=== PATIENT | male | born 1960 | race Caucasian/White ===

== ENCOUNTER 2022-01-11 15:41 | Inpatient (IN) | payer BC, OTHER ==
[2022-01-11 16:30] LABS: #Basophils 0.1 10x3/uL (0.0-0.2); #Eosinphils 0.5 10x3/uL (0.0-0.5); #Monocytes 1.1 10x3/uL (0.0-1.1); #Neutrophils 7.3 10x3/uL (1.5-8.4); %Basophils 0.4 % (0.0-2.0); %Eosinophils 3.8 % (0.0-6.0); %Lymphocytes 25.8 % (18.0-47.0); %Monocytes 9.1 % (0.0-10.0); %Neutrophils 60.5 % (40.0-75.0); Hemoglobin 15.6 g/dL (13.5-17.5); Mean Corpuscular Volume 82.3 fl (81.2-95.1); Mean Platelet Volume 10.7 fl (7.4-10.4); Platelet Count 279 10x3/uL (150-450); RBC Distribution Width 14.1 % (11.5-14.5); Red Blood Cell (RBC) Count 5.58 10x6/uL (4.32-5.72); White Blood Cell (WBC) Count 12.1 10x3/uL (3.5-10.5)
[2022-01-11 16:39] LABS: ALT (SGPT) 76 U/L (8-55); AST (SGOT) 63 U/L (5-34); Albumin 4.3 g/dL (3.5-5.0); Alkaline Phosphatase 54 U/L (40-110); Anion Gap 17 mmol/L (10-20); BUN (Urea Nitrogen) 17 mg/dL (8.4-25.7); Calc. Creatinine Clearance 0 mL/min (70-130); Calcium 9.8 mg/dL (7.8-10.44); Carbon Dioxide 24 mmol/L (22-29); Chloride 103 mmol/L (98-107); Estimated GFR 59; Globulin 3.1 g/dL (2.4-3.5); Glucose 216 mg/dL (70-105); Potassium 4.8 mmol/L (3.5-5.1); Protein, Total 7.4 g/dL (6.0-8.3); Sodium 139 mmol/L (136-145)
[2022-01-11] MEDS ORDERED: Adenosine 6 MG/2 ML VIAL ONE (17:55)
[2022-01-11] MEDS ORDERED: Amiodarone 150 MG/3 ML VIAL ONE (19:03)
[2022-01-11] MEDS ORDERED: Amiodarone In Dextrose 200 ML ONE (19:04)
[2022-01-11] MEDS ORDERED: Diltiazem 125 MG/25 ML ONE (19:44)
[2022-01-11 19:54] LABS: INR-International Normal Ratio 1.1; PTT 26.5 sec (22.0-33.0); Prothrombin Time 11.6 sec (9.5-12.1)
[2022-01-12 00:03] LABS: SARS-CoV-2 NAA Rapid Test DETECTED (NotDetected)
[2022-01-12] MEDS ORDERED: Diltiazem 125 MG in Sodium Chloride 0.9% 100 ML IVPB SCH (00:30)
[2022-01-12] MEDS ORDERED: Enoxaparin Sodium 120 MG/0.8 ML SYRINGE SC SCH ×2 (01:00→09:00)
[2022-01-12 01:14] VITALS: BMI 42.6
[2022-01-12] MEDS: Digoxin 0.5 MG/2 ML AMP SLOW IVP SCH ×3 (01:33→05:38)
[2022-01-12 01:36] LABS: Troponin I 0.017 ng/mL (< 0.028)
[2022-01-12 02:25] LABS: #Eosinphils 0.5 10x3/uL (0.0-0.5); #Monocytes 0.9 10x3/uL (0.0-1.1); #Neutrophils 6.7 10x3/uL (1.5-8.4); %Basophils 0.3 % (0.0-2.0); %Eosinophils 4.4 % (0.0-6.0); %Lymphocytes 28.3 % (18.0-47.0); %Monocytes 8.2 % (0.0-10.0); %Neutrophils 58.6 % (40.0-75.0); Mean Corpuscular HGB CONC 34.3 g/dL (32.0-36.0); Mean Corpuscular Hemoglobin 28.1 pg (27.0-33.0); Mean Corpuscular Volume 81.8 fl (81.2-95.1); Mean Platelet Volume 10.8 fl (7.4-10.4); Platelet Count 217 10x3/uL (150-450); RBC Distribution Width 14.3 % (11.5-14.5); Red Blood Cell (RBC) Count 4.99 10x6/uL (4.32-5.72); White Blood Cell (WBC) Count 11.5 10x3/uL (3.5-10.5)
[2022-01-12 03:08] LABS: Anion Gap 16 mmol/L (10-20); BUN (Urea Nitrogen) 18 mg/dL (8.4-25.7); Calc. Creatinine Clearance 142 mL/min (70-130); Calcium 9.2 mg/dL (7.8-10.44); Carbon Dioxide 24 mmol/L (22-29); Chloride 103 mmol/L (98-107); Cholesterol 169 mg/dl (< 200 Desired); Estimated GFR 75; Glucose 270 mg/dL (70-105); HDL Cholesterol 28 mg/dL (>60 Neg Risk); LDL Cholesterol, Calculated 70 mg/dL; Magnesium 1.4 mg/dL (1.6-2.6); Potassium 4.1 mmol/L (3.5-5.1); Sodium 139 mmol/L (136-145); Triglycerides 355 mg/dL (Less than 150)
[2022-01-12 04:12] LABS: Troponin I 0.019 ng/mL (< 0.028)
[2022-01-12] MEDS ORDERED: Magnesium 2 GM/50 ML(in water) 2 GM in Premix Bag 1 BAG IVPB SCH ×2 (04:45→09:00)
[2022-01-12] MEDS ORDERED: Dextrose 5% in Water 1,000 ML IV PRN (06:55)
[2022-01-12] MEDS ORDERED: Dextrose 50% Abboject 50 ML SYRINGE SLOW IVP PRN (06:55)
[2022-01-12] MEDS ORDERED: HumaLOG 300 UNITS/3 ML VIAL SC PRN (06:55)
[2022-01-12] MEDS: Glimepiride 2 MG TAB PO SCH ×2 (08:16→08:31)
[2022-01-12] MEDS: metFORMIN 500 MG TAB PO SCH ×2 (08:24→08:31)
[2022-01-12] MEDS: Alogliptin 6.25 MG TAB PO SCH ×2 (08:24→08:31)
[2022-01-12] MEDS ORDERED: Aspirin 81 mg Enteric Coated Tablet PO SCH (09:00)
[2022-01-12] MEDS ORDERED: Atorvastatin Calcium 10 MG TAB PO SCH (09:00)
[2022-01-12] MEDS ORDERED: Metoprolol Tartrate 25 MG TAB PO SCH (09:00)
[2022-01-12] MEDS ORDERED: Amlodipine 5 MG TAB PO SCH (09:00)
[2022-01-12] MEDS ORDERED: Apixaban 5 MG TAB PO SCH (21:00)
== END 2022-01-12 15:18 | disposition home or self-care (01) | DRG 308 ==
LOC: CSHERS 15:41 → CSHIMCU 21:19 → UNDOADMIN 01-12 00:17
PROVIDERS: ADMIT Family Medicine; ATTEND Internal Medicine
PROC: 8E0ZXY6 Isolation (ICD-10-PCS; principal; 2022-01-11)
PROC: 5A09357 Assistance with Respiratory Ventilation, Less than 24 Consecutive Hours, Continuous Positive Airway Pressure (ICD-10-PCS; 2022-01-12)
DX: I48.92 Unspecified atrial flutter (principal); U07.1 COVID-19; Z68.41 Body mass index [BMI] 40.0-44.9, adult; I48.91 Unspecified atrial fibrillation; E78.00 Pure hypercholesterolemia, unspecified; E11.9 Type 2 diabetes mellitus without complications; G47.33 Obstructive sleep apnea (adult) (pediatric); E78.5 Hyperlipidemia, unspecified; E66.01 Morbid (severe) obesity due to excess calories; I25.10 Atherosclerotic heart disease of native coronary artery without angina pectoris; I50.9 Heart failure, unspecified; I11.0 Hypertensive heart disease with heart failure; Z79.82 Long term (current) use of aspirin; Z79.899 Other long term (current) drug therapy; Z79.84 Long term (current) use of oral hypoglycemic drugs; Z98.890 Other specified postprocedural states; Z88.0 Allergy status to penicillin
CPT/HCPCS: 36415; 71045; 80048; 80053; 80061; 83735; 84443; 84484; 85025; 85610; 85730; 93005; 93010; 93306; 94660; 96361; 96365; 96366; 96375; 96376; 99292; J0153; J0282; J1160; J1650; J3475; J3490; U0002

== ENCOUNTER 2022-02-13 05:08 | Inpatient (IN) | payer BC ==
[2022-02-13] MEDS ORDERED: Furosemide 40 MG/4 ML VIAL ONE (05:32)
[2022-02-13] MEDS ORDERED: Lorazepam 2 MG/ML VIAL ONE (05:59)
[2022-02-13 06:02] LABS: Hemoglobin 14.1 g/dL (13.5-17.5); Mean Corpuscular HGB CONC 32.4 g/dL (32.0-36.0); Mean Corpuscular Hemoglobin 27.1 pg (27.0-33.0); Mean Corpuscular Volume 83.5 fl (81.2-95.1); Mean Platelet Volume 11.9 fl (7.4-10.4); Platelet Count 216 10x3/uL (150-450); RBC Distribution Width 14.8 % (11.5-14.5); Red Blood Cell (RBC) Count 5.21 10x6/uL (4.32-5.72); White Blood Cell (WBC) Count 24.1 10x3/uL (3.5-10.5)
[2022-02-13 06:03] LABS: MDiff Complete? YES
[2022-02-13 06:07] LABS: Lymphocytes 10 % (21-51); Monocytes 7 % (0-10); Neutrophil 83 % (42-75)
[2022-02-13 06:08] LABS: Platelet Morphology Comment Appears Adequate; RBC Morphology Normal
[2022-02-13 06:25] LABS: ALT (SGPT) 53 U/L (8-55); AST (SGOT) 60 U/L (5-34); Albumin 4.1 g/dL (3.5-5.0); Alkaline Phosphatase 43 U/L (40-110); Anion Gap 22 mmol/L (10-20); BUN (Urea Nitrogen) 40 mg/dL (8.4-25.7); Bilirubin, Total 1.3 mg/dL (0.2-1.2); Calc. Creatinine Clearance 0 mL/min (70-130); Calcium 8.9 mg/dL (7.8-10.44); Carbon Dioxide 15 mmol/L (22-29); Chloride 104 mmol/L (98-107); Estimated GFR 48; Globulin 3.1 g/dL (2.4-3.5); Glucose 271 mg/dL (70-105); Protein, Total 7.2 g/dL (6.0-8.3); SARS-CoV-2 NAA Rapid Test Not Detected (NotDetected); Sodium 136 mmol/L (136-145)
[2022-02-13 06:41] LABS: CKMB 7.7 ng/mL (0-6.6)
[2022-02-13] MEDS ORDERED: Ondansetron PF 4 MG/2 ML Vial IVP PRN (08:20)
[2022-02-13] MEDS ORDERED: HYDROcodone/Acetaminophen 5/325 mg Tablet PO PRN (08:20)
[2022-02-13] MEDS ORDERED: Calcium Carbonate 500 MG ChewTAB PO PRN (08:20)
[2022-02-13] MEDS ORDERED: Senokot S 8.6-50 MG TAB PO PRN (08:20)
[2022-02-13] MEDS ORDERED: Dextrose 5% in Water 1,000 ML IV PRN (08:40)
[2022-02-13] MEDS ORDERED: Dextrose 50% Abboject 50 ML SYRINGE SLOW IVP PRN (08:40)
[2022-02-13 08:58] LABS: Troponin I 0.902 ng/mL (< 0.028)
[2022-02-13] MEDS ORDERED: Loratadine 10 MG TAB PO PRN (09:00)
[2022-02-13] MEDS: Furosemide 40 MG/4 ML VIAL SLOW IVP SCH ×2 (10:00→20:10)
[2022-02-13] MEDS: Metoprolol Tartrate 50 MG TAB PO SCH ×2 (10:01→20:12)
[2022-02-13] MEDS: Aspirin 81 mg Enteric Coated Tablet PO SCH (10:01)
[2022-02-13] MEDS: Alogliptin 6.25 MG TAB PO SCH (10:01)
[2022-02-13] MEDS: Apixaban 5 MG TAB PO SCH ×2 (10:01→20:12)
[2022-02-13] MEDS: Valsartan 80 MG TAB PO SCH (10:01)
[2022-02-13] MEDS: Multivit, Therapeutic 1 TAB PO SCH (10:02)
[2022-02-13] MEDS: HumaLOG 300 UNITS/3 ML VIAL SC PRN ×3 (11:15→20:09)
[2022-02-13] MEDS: hydrALAZINE 20 MG/ML VIAL SLOW IVP PRN (11:18)
[2022-02-13] MEDS ORDERED: Lorazepam 2 MG/ML VIAL SLOW IVP PRN (11:59)
[2022-02-13 12:56] LABS: Troponin I 0.802 ng/mL (< 0.028)
[2022-02-13] MEDS ORDERED: Nitroglycerin 50 MG/250 ML BOT 250 ML IVPB SCH (13:15)
[2022-02-13] MEDS: metroNIDAZOLE 500 MG in Premix Bag 1 BAG IVPB SCH ×2 (13:49→21:12)
[2022-02-13] MEDS: Acetaminophen 325 MG TAB PO PRN (16:25)
[2022-02-13 17:15] LABS: Bilirubin Neg (Negative); Blood, Urine 250 (Negative); Clarity Slightly Cloudy (Clear); Glucose, Urine (Dipstick) >=1000 mg/dL (Negative); Ketone, Urine 50 mg/dL (Negative); Leukocyte 25 (Negative); Nitrite Negative (Negative); Protein, Urine (Dipstick) 100 mg/dl (Neg-Trace); Urobilinogen Normal mg/dL (Less than 2)
[2022-02-13 17:28] LABS: Urine Culture Reflex No No
[2022-02-13 17:35] LABS: Bacteria/HPF None Seen HPF (None Seen); RBC/HPF 21-50 HPF (0-3); Squamous Epithelial 0-3 HPF (0-3); WBC/HPF 0-3 HPF (0-3)
[2022-02-13] MEDS: Glimepiride 2 MG TAB PO SCH (17:57)
[2022-02-13] MEDS ORDERED: Amlodipine 10 MG TAB PO SCH (19:30)
[2022-02-13] MEDS: Atorvastatin Calcium 10 MG TAB PO SCH (20:12)
[2022-02-14] MEDS: hydrALAZINE 20 MG/ML VIAL SLOW IVP PRN ×3 (00:30→13:19)
[2022-02-14 03:53] LABS: #Monocytes 1.1 10x3/uL (0.0-1.1); #Neutrophils 13.2 10x3/uL (1.5-8.4); %Basophils 0.1 % (0.0-2.0); %Eosinophils 0.1 % (0.0-6.0); %Lymphocytes 8.9 % (18.0-47.0); %Monocytes 6.8 % (0.0-10.0); %Neutrophils 83.7 % (40.0-75.0); Hemoglobin 13.6 g/dL (13.5-17.5); Mean Corpuscular HGB CONC 33.7 g/dL (32.0-36.0); Mean Corpuscular Hemoglobin 27.3 pg (27.0-33.0); Mean Corpuscular Volume 81.1 fl (81.2-95.1); Mean Platelet Volume 10.6 fl (7.4-10.4); Platelet Count 186 10x3/uL (150-450); RBC Distribution Width 14.9 % (11.5-14.5); Red Blood Cell (RBC) Count 4.98 10x6/uL (4.32-5.72); White Blood Cell (WBC) Count 15.7 10x3/uL (3.5-10.5)
[2022-02-14 04:06] LABS: Anion Gap 16 mmol/L (10-20); BUN (Urea Nitrogen) 33 mg/dL (8.4-25.7); Calc. Creatinine Clearance 130 mL/min (70-130); Calcium 8.9 mg/dL (7.8-10.44); Carbon Dioxide 24 mmol/L (22-29); Cardiac Risk 3.6 (Less than 4.5); Chloride 104 mmol/L (98-107); Cholesterol 137 mg/dl (< 200 Desired); Estimated GFR 64; Glucose 223 mg/dL (70-105); HDL Cholesterol 38 mg/dL (>60 Neg Risk); LDL Cholesterol, Calculated 75 mg/dL; Potassium 3.2 mmol/L (3.5-5.1); Sodium 141 mmol/L (136-145); Triglycerides 121 mg/dL (Less than 150)
[2022-02-14] MEDS: metroNIDAZOLE 500 MG in Premix Bag 1 BAG IVPB SCH ×3 (05:07→21:08)
[2022-02-14 05:53] LABS: Magnesium 1.6 mg/dL (1.6-2.6)
[2022-02-14] MEDS ORDERED: Potassium Chloride 20 MEQ TAB PO SCH ×2 (06:00→08:00)
[2022-02-14] MEDS ORDERED: Magnesium Oxide 400 MG TAB PO SCH (06:15)
[2022-02-14] MEDS: Amlodipine 10 MG TAB PO SCH (08:07)
[2022-02-14] MEDS: Aspirin 81 mg Enteric Coated Tablet PO SCH (08:07)
[2022-02-14] MEDS: Metoprolol Tartrate 50 MG TAB PO SCH ×2 (08:08→21:07)
[2022-02-14] MEDS: Alogliptin 6.25 MG TAB PO SCH (08:08)
[2022-02-14] MEDS: Furosemide 40 MG/4 ML VIAL SLOW IVP SCH ×2 (08:08→21:04)
[2022-02-14] MEDS: Apixaban 5 MG TAB PO SCH ×2 (08:08→21:07)
[2022-02-14] MEDS: Multivit, Therapeutic 1 TAB PO SCH (08:08)
[2022-02-14] MEDS: Valsartan 80 MG TAB PO SCH (08:09)
[2022-02-14] MEDS: Glimepiride 2 MG TAB PO SCH ×2 (08:09→17:45)
[2022-02-14] MEDS: HumaLOG 300 UNITS/3 ML VIAL SC PRN ×3 (11:26→21:06)
[2022-02-14 12:26] LABS: Hemoglobin A1c 8.1 % (4.0-6.0)
[2022-02-14] MEDS: Acetaminophen 325 MG TAB PO PRN (13:18)
[2022-02-14] MEDS ORDERED: Metoprolol Tartrate 50 MG TAB PO SCH (16:00)
[2022-02-14] MEDS ORDERED: Magnesium 2 GM/50 ML(in water) 2 GM in Premix Bag 1 BAG IVPB SCH (16:00)
[2022-02-14] MEDS: Dronedarone HCl 400 MG TAB PO SCH (21:06)
[2022-02-14] MEDS: Atorvastatin Calcium 10 MG TAB PO SCH (21:07)
[2022-02-15 04:22] LABS: #Eosinphils 0.2 10x3/uL (0.0-0.5); #Neutrophils 9.9 10x3/uL (1.5-8.4); %Basophils 0.1 % (0.0-2.0); %Eosinophils 1.7 % (0.0-6.0); %Lymphocytes 12.3 % (18.0-47.0); %Monocytes 7.8 % (0.0-10.0); %Neutrophils 77.5 % (40.0-75.0); Hemoglobin 13.2 g/dL (13.5-17.5); Mean Corpuscular HGB CONC 32.9 g/dL (32.0-36.0); Mean Corpuscular Hemoglobin 27.3 pg (27.0-33.0); Mean Corpuscular Volume 82.9 fl (81.2-95.1); Mean Platelet Volume 10.8 fl (7.4-10.4); Platelet Count 182 10x3/uL (150-450); RBC Distribution Width 14.9 % (11.5-14.5); Red Blood Cell (RBC) Count 4.84 10x6/uL (4.32-5.72); White Blood Cell (WBC) Count 12.7 10x3/uL (3.5-10.5)
[2022-02-15 04:47] LABS: Anion Gap 15 mmol/L (10-20); BUN (Urea Nitrogen) 27 mg/dL (8.4-25.7); Calc. Creatinine Clearance 140 mL/min (70-130); Calcium 8.9 mg/dL (7.8-10.44); Carbon Dioxide 24 mmol/L (22-29); Chloride 105 mmol/L (98-107); Estimated GFR 73; Glucose 213 mg/dL (70-105); Potassium 3.5 mmol/L (3.5-5.1); Sodium 140 mmol/L (136-145)
[2022-02-15] MEDS: metroNIDAZOLE 500 MG in Premix Bag 1 BAG IVPB SCH ×2 (05:01→16:13)
[2022-02-15 05:08] VITALS: BMI 42.0
[2022-02-15] MEDS: Multivit, Therapeutic 1 TAB PO SCH (08:32)
[2022-02-15] MEDS: Amlodipine 10 MG TAB PO SCH (08:32)
[2022-02-15] MEDS: Aspirin 81 mg Enteric Coated Tablet PO SCH (08:32)
[2022-02-15] MEDS: Apixaban 5 MG TAB PO SCH ×2 (08:32→19:57)
[2022-02-15] MEDS: Furosemide 40 MG/4 ML VIAL SLOW IVP SCH (08:33)
[2022-02-15] MEDS: Dronedarone HCl 400 MG TAB PO SCH ×2 (08:33→19:57)
[2022-02-15] MEDS: Alogliptin 6.25 MG TAB PO SCH (08:33)
[2022-02-15] MEDS: Metoprolol Tartrate 50 MG TAB PO SCH ×2 (08:33→19:57)
[2022-02-15] MEDS: Glimepiride 2 MG TAB PO SCH ×2 (08:34→16:25)
[2022-02-15] MEDS: Valsartan 80 MG TAB PO SCH (08:35)
[2022-02-15] MEDS ORDERED: Cepastat Lozenges 1 LOZ PO PRN (16:34)
[2022-02-15] MEDS ORDERED: Chloraseptic Spray 180 ml Bottle PO PRN (16:40)
[2022-02-15] MEDS: Atorvastatin Calcium 10 MG TAB PO SCH (19:57)
[2022-02-15 20:28] LABS: Anion Gap 17 mmol/L (10-20); BUN (Urea Nitrogen) 23 mg/dL (8.4-25.7); Calc. Creatinine Clearance 170 mL/min (70-130); Carbon Dioxide 23 mmol/L (22-29); Chloride 102 mmol/L (98-107); Estimated GFR 92; Glucose 163 mg/dL (70-105); Magnesium 1.5 mg/dL (1.6-2.6); Potassium 3.2 mmol/L (3.5-5.1); Sodium 139 mmol/L (136-145)
[2022-02-15 20:35] LABS: Troponin I 0.232 ng/mL (< 0.028)
[2022-02-15] MEDS ORDERED: Diltiazem 125 MG in Sodium Chloride 0.9% 100 ML IVPB SCH (22:00)
[2022-02-15] MEDS ORDERED: Magnesium 2 GM/50 ML(in water) 2 GM in Premix Bag 1 BAG IVPB SCH (22:00)
[2022-02-15] MEDS ORDERED: Potassium Chloride 20 MEQ TAB PO SCH (22:00)
[2022-02-16] MEDS: Potassium Chloride 20 MEQ in Premix Bag 1 BAG IVPB SCH ×2 (01:08→04:23)
[2022-02-16] MEDS: metroNIDAZOLE 500 MG in Premix Bag 1 BAG IVPB SCH ×3 (04:24→13:44)
[2022-02-16] MEDS ORDERED: Potassium Chloride 20 MEQ in Premix Bag 1 BAG IVPB SCH (04:30)
[2022-02-16 04:52] LABS: #Eosinphils 0.4 10x3/uL (0.0-0.5); #Monocytes 1.1 10x3/uL (0.0-1.1); #Neutrophils 6.9 10x3/uL (1.5-8.4); %Basophils 0.2 % (0.0-2.0); %Lymphocytes 16.8 % (18.0-47.0); %Monocytes 10.6 % (0.0-10.0); %Neutrophils 67.8 % (40.0-75.0); Hemoglobin 13.6 g/dL (13.5-17.5); Mean Corpuscular HGB CONC 32.2 g/dL (32.0-36.0); Mean Corpuscular Hemoglobin 27.1 pg (27.0-33.0); Mean Corpuscular Volume 84.4 fl (81.2-95.1); Mean Platelet Volume 10.6 fl (7.4-10.4); Platelet Count 191 10x3/uL (150-450); RBC Distribution Width 14.6 % (11.5-14.5); Red Blood Cell (RBC) Count 5.01 10x6/uL (4.32-5.72); White Blood Cell (WBC) Count 10.2 10x3/uL (3.5-10.5)
[2022-02-16 05:18] LABS: Anion Gap 15 mmol/L (10-20); BUN (Urea Nitrogen) 22 mg/dL (8.4-25.7); Calc. Creatinine Clearance 176 mL/min (70-130); Calcium 8.8 mg/dL (7.8-10.44); Carbon Dioxide 23 mmol/L (22-29); Chloride 106 mmol/L (98-107); Estimated GFR 96; Glucose 196 mg/dL (70-105); Potassium 3.8 mmol/L (3.5-5.1); Sodium 140 mmol/L (136-145)
[2022-02-16 07:06] LABS: Magnesium 1.8 mg/dL (1.6-2.6)
[2022-02-16] MEDS: Alogliptin 6.25 MG TAB PO SCH (09:32)
[2022-02-16] MEDS: Metoprolol Tartrate 50 MG TAB PO SCH ×2 (09:32→22:06)
[2022-02-16] MEDS: Multivit, Therapeutic 1 TAB PO SCH (09:33)
[2022-02-16] MEDS: Furosemide 40 MG TAB PO SCH (09:33)
[2022-02-16] MEDS: Apixaban 5 MG TAB PO SCH ×2 (09:33→22:05)
[2022-02-16] MEDS: Aspirin 81 mg Enteric Coated Tablet PO SCH (09:33)
[2022-02-16] MEDS: Dronedarone HCl 400 MG TAB PO SCH ×2 (09:33→22:05)
[2022-02-16] MEDS: Glimepiride 2 MG TAB PO SCH ×2 (11:33→17:50)
[2022-02-16] MEDS: Acetaminophen 325 MG TAB PO PRN (11:33)
[2022-02-16] MEDS: Valsartan 80 MG TAB PO SCH (11:33)
[2022-02-16] MEDS ORDERED: Diltiazem 125 MG in Sodium Chloride 0.9% 100 ML IVPB SCH ×2 (12:00→18:33)
[2022-02-16] MEDS: HumaLOG 300 UNITS/3 ML VIAL SC PRN (16:51)
[2022-02-16] MEDS: Atorvastatin Calcium 10 MG TAB PO SCH (22:06)
[2022-02-17] MEDS: metroNIDAZOLE 500 MG in Premix Bag 1 BAG IVPB SCH ×4 (01:33→16:46)
[2022-02-17 05:43] LABS: #Eosinphils 0.5 10x3/uL (0.0-0.5); #Monocytes 1.2 10x3/uL (0.0-1.1); #Neutrophils 6.5 10x3/uL (1.5-8.4); %Basophils 0.3 % (0.0-2.0); %Eosinophils 5.2 % (0.0-6.0); %Lymphocytes 18.7 % (18.0-47.0); %Monocytes 11.8 % (0.0-10.0); %Neutrophils 63.6 % (40.0-75.0); Hemoglobin 13.6 g/dL (13.5-17.5); Mean Corpuscular Hemoglobin 27.5 pg (27.0-33.0); Mean Corpuscular Volume 83.2 fl (81.2-95.1); Mean Platelet Volume 11.4 fl (7.4-10.4); Platelet Count 217 10x3/uL (150-450); RBC Distribution Width 14.1 % (11.5-14.5); Red Blood Cell (RBC) Count 4.95 10x6/uL (4.32-5.72); White Blood Cell (WBC) Count 10.2 10x3/uL (3.5-10.5)
[2022-02-17 05:55] LABS: Anion Gap 15 mmol/L (10-20); BUN (Urea Nitrogen) 19 mg/dL (8.4-25.7); Calc. Creatinine Clearance 176 mL/min (70-130); Calcium 8.9 mg/dL (7.8-10.44); Carbon Dioxide 22 mmol/L (22-29); Chloride 106 mmol/L (98-107); Estimated GFR 96; Glucose 220 mg/dL (70-105); Potassium 3.6 mmol/L (3.5-5.1); Sodium 139 mmol/L (136-145)
[2022-02-17] MEDS ORDERED: Diltiazem 125 MG in Sodium Chloride 0.9% 100 ML IVPB SCH (06:00)
[2022-02-17] MEDS: Furosemide 40 MG TAB PO SCH (07:39)
[2022-02-17] MEDS: HumaLOG 300 UNITS/3 ML VIAL SC PRN ×3 (07:39→17:11)
[2022-02-17] MEDS ORDERED: Amiodarone 450 MG in Dextrose 5% in Water 250 ML IVPB SCH (10:00)
[2022-02-17] MEDS ORDERED: Amiodarone 150 MG in Dextrose 5% in Water 100 ML IVPB SCH (10:00)
[2022-02-17] MEDS: Alogliptin 6.25 MG TAB PO SCH (10:27)
[2022-02-17] MEDS: Apixaban 5 MG TAB PO SCH ×2 (10:28→20:24)
[2022-02-17] MEDS: Aspirin 81 mg Enteric Coated Tablet PO SCH (10:28)
[2022-02-17] MEDS: Glimepiride 2 MG TAB PO SCH ×2 (10:28→16:46)
[2022-02-17] MEDS: Metoprolol Tartrate 50 MG TAB PO SCH ×2 (10:29→20:24)
[2022-02-17] MEDS: Multivit, Therapeutic 1 TAB PO SCH (10:29)
[2022-02-17] MEDS: Valsartan 80 MG TAB PO SCH (10:35)
[2022-02-17] MEDS ORDERED: Dextrose 5% in Water 100 ML ONE (10:52)
[2022-02-17] MEDS ORDERED: Amiodarone In Dextrose 150 MG in Premix Bag 1 BAG IVPB SCH (11:15)
[2022-02-17] MEDS: Amiodarone In Dextrose 360 MG in Premix Bag 1 BAG IVPB SCH ×3 (11:35→17:35)
[2022-02-17] MEDS: Dronedarone HCl 400 MG TAB PO SCH (19:59)
[2022-02-17] MEDS: Atorvastatin Calcium 10 MG TAB PO SCH (20:24)
[2022-02-18 04:49] LABS: Anion Gap 16 mmol/L (10-20); BUN (Urea Nitrogen) 16 mg/dL (8.4-25.7); Calc. Creatinine Clearance 158 mL/min (70-130); Carbon Dioxide 20 mmol/L (22-29); Chloride 107 mmol/L (98-107); Estimated GFR 88; Glucose 209 mg/dL (70-105); Potassium 3.9 mmol/L (3.5-5.1); Sodium 139 mmol/L (136-145)
[2022-02-18] MEDS: Amiodarone In Dextrose 360 MG in Premix Bag 1 BAG IVPB SCH (06:22)
[2022-02-18] MEDS: Furosemide 40 MG TAB PO SCH (06:31)
[2022-02-18] MEDS: HumaLOG 300 UNITS/3 ML VIAL SC PRN ×3 (06:41→17:03)
[2022-02-18] MEDS: metroNIDAZOLE 500 MG TAB PO SCH ×2 (08:46→15:59)
[2022-02-18] MEDS: Multivit, Therapeutic 1 TAB PO SCH (08:47)
[2022-02-18] MEDS: Aspirin 81 mg Enteric Coated Tablet PO SCH (08:47)
[2022-02-18] MEDS: Alogliptin 6.25 MG TAB PO SCH (08:47)
[2022-02-18] MEDS: Apixaban 5 MG TAB PO SCH (08:47)
[2022-02-18] MEDS: Valsartan 80 MG TAB PO SCH (08:48)
[2022-02-18] MEDS: Glimepiride 2 MG TAB PO SCH ×2 (08:52→17:03)
[2022-02-18] MEDS: Metoprolol Tartrate 50 MG TAB PO SCH (08:52)
[2022-02-18 17:06] VITALS: BP 109/52; TEMP 97.8
[2022-02-18] MEDS ORDERED: Amiodarone 200 MG TAB PO SCH (21:00)
== END 2022-02-18 19:41 | disposition home or self-care (01) | DRG 205 ==
LOC: CSHERS 05:08 → CSHICU 08:37 → CSHIMCU 02-14 09:06 → CSHICU 02-14 09:17 → CSHTELE 02-15 15:46
PROVIDERS: ADMIT Family Medicine; ATTEND Family Medicine
PROC: 5A09457 Assistance with Respiratory Ventilation, 24-96 Consecutive Hours, Continuous Positive Airway Pressure (ICD-10-PCS; principal; 2022-02-13)
DX: J95.89 Other postprocedural complications and disorders of respiratory system, not elsewhere classified (principal); I21.A1 Myocardial infarction type 2; J69.0 Pneumonitis due to inhalation of food and vomit; J96.01 Acute respiratory failure with hypoxia; I48.92 Unspecified atrial flutter; Z68.41 Body mass index [BMI] 40.0-44.9, adult; E66.01 Morbid (severe) obesity due to excess calories; I48.0 Paroxysmal atrial fibrillation; I25.10 Atherosclerotic heart disease of native coronary artery without angina pectoris; I10 Essential (primary) hypertension; E11.9 Type 2 diabetes mellitus without complications; G47.33 Obstructive sleep apnea (adult) (pediatric); Z20.822 Contact with and (suspected) exposure to COVID-19; Y83.8 Other surgical procedures as the cause of abnormal reaction of the patient, or of later complication, without mention of misadventure at the time of the procedure; Z88.0 Allergy status to penicillin; Z79.82 Long term (current) use of aspirin; Z79.01 Long term (current) use of anticoagulants; Z79.899 Other long term (current) drug therapy; Z79.84 Long term (current) use of oral hypoglycemic drugs
CPT/HCPCS: 36415; 36416; 51702; 71045; 71046; 80048; 80053; 80061; 81001; 82553; 83036; 83735; 83880; 84484; 85025; 87040; 87086; 93005; 93010; 94660; 94760; 96374; 96375; J0282; J0360; J1815; J1940; J1956; J2060; J3475; J3480; J3490; J7070; U0002

== ENCOUNTER 2022-07-23 08:55 | Outpatient (CLI) | payer BC | END 2022-07-23 08:56 | disposition home or self-care (01) | LOC: CSHULT 08:55 | PROVIDERS: ATTEND Internal Medicine | DX: K76.0 Fatty (change of) liver, not elsewhere classified (principal) | CPT/HCPCS: 76705 ==